=== PATIENT | female | born 1935 | race Caucasian/White ===

== ENCOUNTER 2019-06-24 14:18 | Inpatient (IN) | payer MEDICARE ==
[~2019-06-24] VITALS: Ht 154.9 cm; Wt 66.7 kg
[2019-06-24 14:41] LABS: BASOPHILS # (AUTO) 0.1 K/uL (0.0-8.0); EOSINOPHILS # (AUTO) 0.3 K/uL (0.0-0.7); HEMATOCRIT 32.5 % (31.2-41.9); HEMOGLOBIN 10.9 g/dL (10.9-14.3); LYMPHOCYTES # (AUTO) 1.4 K/uL (20.0-40.0); LYMPHOCYTES % (AUTO) 13.7 % (20.5-51.5); MEAN CORPUSCULAR HEMOGLOBIN 30.9 uug (24.7-32.8); MEAN CORPUSCULAR HGB CONC 34 g/dL (32.3-35.6); MEAN CORPUSCULAR VOLUME 92.2 fL (75.5-95.3); MONOCYTES # (AUTO) 0.9 K/uL (2.0-10.0); MONOCYTES % (AUTO) 8.9 % (0.0-11.0); NEUTROPHILS # (AUTO) 7.5 K/uL (1.8-8.9); NEUTROPHILS % (AUTO) 73.4 % (38.5-71.5); PLATELET COUNT (AUTO) 372 K/uL (179-408); RED BLOOD CELL COUNT(AUTO) 3.53 MIL/uL (3.63-4.92); WHITE BLOOD COUNT (AUTO) 10.3 K/uL (3.8-11.8)
[2019-06-24 14:49] LABS: CREATININE 1.3 mg/dL (0.6-1.3); POTASSIUM 5.1 mmol/L (3.5-5.1)
[2019-06-24 14:55] LABS: BILIRUBIN,DIRECT 0.1 mg/dL (0.0-0.2); BILIRUBIN,TOTAL 0.3 mg/dL (0.2-1.0); TOTAL PROTEIN, SERUM 6.5 g/dL (6.4-8.2)
--- NOTE | 2019-06-24 14:59 | NUR ---
Pt is unable to recall complete information about home medications (names,doses,frequency) at this time. Pt states she will attempt to obtain further information. Home med list updated accordingly.
--- NOTE | 2019-06-24 17:10 | NUR ---
pt being prepared to transfer to tele room 304.
--- NOTE | 2019-06-24 17:36 | NUR ---
gave report to DONATO BUTLER TELE ROOM 319.
[2019-06-24] MEDS ORDERED: ONDANSETRON 4 MG/2 ML VIAL IV PRN (18:00)
[2019-06-24] MEDS ORDERED: MAGNESIUM HYDROXIDE 30 ML LIQUID UDC PO PRN (18:00)
[2019-06-24] MEDS ORDERED: ZOLPIDEM 5 MG TABLET PO PRN (18:00)
[2019-06-24] MEDS ORDERED: Z GUARD REMEDY PASTE 57 GM TUBE TOP PRN (18:00)
[2019-06-24] MEDS ORDERED: ACETAMINOPHEN 325 MG TABLET PO PRN (18:00)
[2019-06-24] MEDS ORDERED: IV NORMAL SALINE 1000 ML BAG IV ONE (18:00)
[2019-06-24] MEDS ORDERED: ENOXAPARIN SODIUM 40 MG/0.4 ML DISP.SYRIN SQ SCH (18:00)
[2019-06-24] MEDS ORDERED: HYDROCODONE/APAP 5-325MG TABLET PO PRN (18:00)
--- NOTE | 2019-06-24 18:10 | NUR ---
Pt. admitted to Tele room 319 , under care of Dr.Sam Bejarano. Belongs List completed
[2019-06-24 18:23] VITALS: BP 104/36
--- NOTE | 2019-06-24 18:44 | NUR ---
Received patient from ER via [place] with Diagnosis of Syncope;URI under Dr. Eleazar Garcia, Patient is awake, alert and verbally responsive. No signs of distress noted. No SOB. No complain of pain/discomfort/ denies Chest pain. LFA 18 IV intact, started IV NS at 75cc/hr. No signs of Infiltration noted. kept the call light within easy reach. kept the bed in lowest position. kept clean and comfortable. Will endorse to Oncoming Nurse.
[2019-06-24] MEDS: IV NS 1000 ML 1,000 ML IV PRN (18:47)
[2019-06-24] MEDS ORDERED: LEVOFLOXACIN 750MG/D5W 750 MG in PREMIXED 1 EACH IV SCH (19:00)
[2019-06-24] MEDS ORDERED: GABAPENTIN 100 MG CAPSULE PO SCH (21:00)
[2019-06-24] MEDS ORDERED: ENOXAPARIN SODIUM 30 MG/0.3 ML DISP.SYRIN SUBCUT SCH (21:00)
[2019-06-25] VITALS: BP 153/78
[2019-06-25 06:27] LABS: BASOPHILS # (AUTO) 0.1 K/uL (0.0-8.0); EOSINOPHILS # (AUTO) 0.3 K/uL (0.0-0.7); EOSINOPHILS % (AUTO) 4.2 % (0.0-7.0); HEMATOCRIT 32.1 % (31.2-41.9); HEMOGLOBIN 10.7 g/dL (10.9-14.3); LYMPHOCYTES # (AUTO) 1.6 K/uL (20.0-40.0); MEAN CORPUSCULAR HEMOGLOBIN 30.8 uug (24.7-32.8); MEAN CORPUSCULAR HGB CONC 34 g/dL (32.3-35.6); MEAN CORPUSCULAR VOLUME 91.9 fL (75.5-95.3); MONOCYTES # (AUTO) 0.7 K/uL (2.0-10.0); MONOCYTES % (AUTO) 8.7 % (0.0-11.0); NEUTROPHILS # (AUTO) 5.3 K/uL (1.8-8.9); NEUTROPHILS % (AUTO) 66.1 % (38.5-71.5); PLATELET COUNT (AUTO) 316 K/uL (179-408); RED BLOOD CELL COUNT(AUTO) 3.49 MIL/uL (3.63-4.92)
[2019-06-25 06:44] LABS: MAGNESIUM 1.7 mg/dL (1.8-2.4); PHOSPHOROUS 3.3 mg/dL (2.5-4.9)
[2019-06-25 06:47] LABS: THYROID STIMULATING HORMONE 2.995 mIU/mL (0.358-3.740)
[2019-06-25] MEDS ORDERED: PANTOPRAZOLE SODIUM 40 MG TABLET.DR PO SCH (07:00)
[2019-06-25] MEDS ORDERED: LEVOTHYROXINE SODIUM 50 MCG TABLET PO SCH (07:00)
--- NOTE | 2019-06-25 07:30 | NUR ---
Received patient in bed, awake and verbally responsive. No signs of distress noted. No SOB. No complain of pain or discomfort. Denies chest Pain. IVF infusing well, no Infiltration noted. kept clean and comfortable. Will continue to monitor.
[2019-06-25] MEDS ORDERED: ASPIRIN 81 MG TAB.CHEW PO SCH (09:00)
[2019-06-25 11:00] VITALS: BP 154/65
[2019-06-25] MEDS: IV NS 1000 ML 1,000 ML IV PRN (11:37)
[2019-06-25] MEDS ORDERED: MAGNESIUM SULFATE/D5W 100 ML IV SCH (12:45)
[2019-06-25] MEDS ORDERED: MAGNESIUM OXIDE 400 MG TABLET PO ONE (13:00)
--- NOTE | 2019-06-25 14:30 | NUR ---
Patient is awake, alert and verbally responsive. No signs of distress noted. No SOB. No complain of Pain or discomfort. Denies cheat pain. patient was cleared by Supervisor Screen Making Dr. Silva. Patient with Order to be discharge Home today. Discharge order given and verbalized Understanding, Removed diagnostic cardiac sonographer, IV site and wrist Band. All belongings was signed and sent with patient. Patient was discharge in stable condition via Private car with Son.
== END 2019-06-25 14:40 | disposition home or self-care (01) | DRG 641 ==
LOC: ER 14:18 → TELE3 17:39
DX: E86.0 Dehydration (principal); R41.0 Disorientation, unspecified; T50.2X5A Adverse effect of carbonic-anhydrase inhibitors, benzothiadiazides and other diuretics, initial encounter; Y92.810 Car as the place of occurrence of the external cause; I35.0 Nonrheumatic aortic (valve) stenosis; E78.5 Hyperlipidemia, unspecified; Z85.89 Personal history of malignant neoplasm of other organs and systems; Z85.41 Personal history of malignant neoplasm of cervix uteri; I08.3 Combined rheumatic disorders of mitral, aortic and tricuspid valves; I67.2 Cerebral atherosclerosis; I10 Essential (primary) hypertension; I70.0 Atherosclerosis of aorta; J45.909 Unspecified asthma, uncomplicated
CPT/HCPCS: 36415; 70030-TC; 70450; 71045; 83735; 84100; 84443; 85025; 93005; 93307; A4663; G0378; J1650; J1956; J7030